=== PATIENT | female | born 1935 | race Caucasian/White ===

== ENCOUNTER 2018-01-03 23:40 | Observation (INO) ==
[2018-01-03] MEDS ORDERED: Ipratropium/Albuterol Neb 3 ML IH ONE (23:44)
[2018-01-03] MEDS ORDERED: cefTRIAXone 2,000 MG in Water for inj. (sterile) 20 ML 10 ML IVP ONE (23:44)
[2018-01-03] MEDS ORDERED: Azithromycin 500 MG in D5% in Water 250 ML IVPB ONE (23:44)
[2018-01-03] MEDS ORDERED: methylPREDNISolone 125 MG/2 ML VIAL IVP ONE (23:44)
--- NOTE | 2018-01-03 23:46 | Emergency Department Note ---
Disposition Clinical Impression: Acute exacerbation of chronic obstructive airways disease Disposition: Admitted As Inpatient Condition: Fair SOB HPI - General Chief Complaint: ED Shortness of Breath/Dyspnea Stated Complaint: santiago Time Seen by Provider: 01/03/18 23:43 Source: patient, family Mode of arrival: private vehicle Limitations: physical limitation, age Nursing Notes Reviewed: Yes Vital Signs Reviewed: Yes - History of Present Illness Patient relates she has had some increased shortness of breath for about a week. She is trying to hold off for another 4 days to see her primary care provider. She relates in last 2-3 days she has had progressive dyspnea such that she is more dyspneic even at rest. She has had dyspnea on exertion and a cough productive of thick phlegm. States she has been taking fluids but feels dry. She had a temperature yesterday that she states was about 101 degrees. She reports a little nausea but no vomiting or diaphoresis. She denies chest pain but instead describes heavy breathing. She denies any lower extremity swelling, immobilization or injury. She has any ill exposures. She states she has Symbicort inhaler as well as nebulized treatments at home. She states her last nebulizer treatment was a day ago. She does report some generalized weakness and malaise. Pt Subjective Complaint: shortness of breath Onset (ago): week(s) (1) Context: recent illness Severity: moderate, severe Consistency/Duration: gradually worsening Improves with: oxygen, bronchodilators Worsens with: exertion, coughing Known history of: COPD Associated symptoms: Reports: fever, cough, wheezing, sputum production, nausea/ vomiting (Nausea only). Denies: chest pain, pain with inspiration, orthopnea, lower extremity pain, polyuria, polydipsia, parasthesias, palpitations, hemoptysis, diaphoresis, syncope, abdominal pain, rash, sense of impending doom Treatment prior to arrival: oxygen Cough present: Yes Cough Description: Voluntary, Productive, Hacking Cough Frequency: Intermittent Sputum production: Yes Sputum Amount: Moderate Sputum Color: Yellow - Related Data Home oxygen amount: 3 liters Home Medications Medication Instructions Recorded Confirmed Ascorbate Calcium [Vitamin C] 500 mg PO DAILY 11/29/15 05/20/17 Aspirin [Adult Low Dose Aspirin EC] 81 mg PO DAILY 11/29/15 01/03/18 Budesonide/Formoterol 160/4.5 2 puff IH BID 11/29/15 05/20/17 [Symbicort 160/4.5] Ferrous Sulfate 325 mg PO DAILY 11/29/15 05/20/17 Folic Acid 1 mg PO DAILY #0 11/29/15 05/20/17 GlipiZIDE [Glipizide Xl] 5 mg PO DAILY 11/29/15 05/20/17 Lansoprazole [Prevacid] 30 mg PO DAILY 11/29/15 05/20/17 Levothyroxine [Synthroid] 100 mcg PO DAILY 11/29/15 05/20/17 Meclizine [Antivert] 12.5 mg PO QID PRN 11/29/15 05/20/17 Metformin HCl [Fortamet] 500 mg PO BIDWM 11/29/15 05/20/17 Metoclopramide HCl 5 mg PO QID PRN 11/29/15 05/20/17 Oxycodone HCl/Acetaminophen 1 tab PO Q6H PRN 11/29/15 05/20/17 [Percocet 10-325 mg Tablet] Sertraline HCl [Zoloft] 100 mg PO DAILY 11/29/15 05/20/17 Gabapentin [Neurontin] 300 mg PO TID 07/11/16 05/20/17 Lisinopril [Zestril] 20 mg PO DAILY 07/11/16 05/20/17 Oxygen 4 l .ROUTE AD 01/30/17 05/20/17 Magnesium Hydroxide [Milk of 400 mg PO DAILY PRN 05/20/17 05/20/17 Magnesia] Sucralfate [Carafate] 1 gm PO BID 05/20/17 05/20/17 Nitroglycerin [Nitrostat] 0.4 mg SL AD PRN 05/22/17 05/22/17 Diltiazem HCl [Diltiazem 24Hr Cd] 360 mg PO 01/03/18 Isosorbide MONOnitrate (24 HR) 60 mg PO DAILY 01/03/18 01/03/18 [Imdur] Previous Rx's Medication Instructions Recorded Furosemide [Lasix] 40 mg PO BID #0 02/04/17 Clopidogrel [Plavix] 75 mg PO DAILY #30 tab 05/22/17 Metoprolol XL (24 HR) Succ [Toprol 25 mg PO DAILY #30 05/22/17 Xl] Allergies Allergy/AdvReac Type Severity Reaction Status Date / Time Sulfa (Sulfonamide Allergy Severe Swelling Verified 12/17/16 14:43 Antibiotics) of Lip/Tongue/Throat All systems ED: reviewed and negative except as stated. Past Medical History - Past Medical History Attestation: Yes The following information was validated with the patient. Source: patient, old records reviewed, obtained from family, nursing notes reviewed Medical history: Reports: atrial fibrillation, cancer, CHF, COPD, coronary artery disease, CVA, diabetes, hyperlipidemia, hypertension, myocardial infarction. Denies: DVT, pulmonary embolus Surgical history: Reports: carotid endarterectomy, herniorrhaphy, hysterectomy Psychiatric history: Reports: no psych history - Social History Smoking Status: Never smoker Smokeless Tobacco Status: No Alcohol use: Reports: none Drug use: Reports: none Physical Exam - General Limitations: no limitations General appearance: alert, in distress (Moderately dyspneic) - Head Head exam: atraumatic, normocephalic, normal inspection - Eye Eye exam: Present: normal appearance, PERRL, EOMI. Absent: scleral icterus, conjunctival injection - ENT ENT exam: normal exam, normal oropharynx, mucous membranes dry - Neck Neck exam: Present: normal inspection, full ROM, trachea midline. Absent: meningismus, lymphadenopathy - Chest Chest inspection: Present: normal inspection, symmetric chest wall rise - Respiratory Respiratory exam: Present: respiratory distress, wheezes, prolonged expiratory phase. Absent: stridor, accessory muscle use - Cardiovascular Cardiovascular exam: Present: regular rate, normal rhythm, normal heart sounds - Abdominal Exam Abdominal exam: Present: soft, Non-Tender, normal bowel sounds. Absent: tenderness, distention, guarding, rebound, rigidity - Extremities Exam Extremities exam: Present: normal inspection, full ROM, normal capillary refill. Absent: tenderness, pedal edema, calf tenderness - Expanded Lower Extremity Exam Neurovascular/Tendon exam: Present: normal capillary refill. Absent: motor deficit, sensory deficit, tendon deficit Gait: not tested/not observed - Back Exam Back exam: Present: normal inspection, full ROM. Absent: tenderness, CVA tenderness (R), CVA tenderness (L) - Neurological Exam Neurological exam: Present: alert, oriented X3 - Psychiatric Psychiatric exam: Present: normal affect, normal mood - Skin Skin exam: Present: warm, dry, intact, normal color. Absent: diaphoresis, pallor Course Vital Signs Temperature 101.9 F H 01/03/18 23:41 Pulse Rate 91 01/03/18 23:41 Respiratory Rate 24 01/03/18 23:41 Blood Pressure 156/66 01/03/18 23:41 O2 Sat by Pulse Oximetry 87 01/03/18 23:41 Temperature 98.9 F 01/04/18 02:17 Pulse Rate 78 01/04/18 02:17 Respiratory Rate 22 01/04/18 02:17 Blood Pressure 78/47 01/04/18 02:17 O2 Sat by Pulse Oximetry 97 01/04/18 02:17 Oxygen Delivery Oxygen Delivery Nasal Cannula Shortness of Breath/Dyspnea - Differential Diagnosis Likely: acute exacerbation of chronic obstructive airways disease, pneumonia - Medical Records Medical records reviewed: Yes I reviewed the patient's medical records. - Lab Data Lab results reviewed: Yes I reviewed the patient's lab results. Result diagrams: 01/04/18 00:00 01/04/18 00:00 Lab Results 01/04/18 01/04/18 01/04/18 Range/Units 00:00 00:00 00:00 WBC 4.9 (4.3-11.1) K/mcL RBC 4.55 (3.82-4.97) M/mcL Hgb 14.5 (11.5-15.4) g/dL Hct 44.9 (35.3-44.9) % MCV 98.7 (83.0-100.0) fL MCH 31.9 (28.0-33.3) pg MCHC 32.3 (31.6-35.5) g/dL RDW 13.1 (11.5-14.5) % Plt Count 146 (140-400) K/mcL MPV 11.5 (9.4-12.4) fL Immature Gran % 0.2 (0-4) % Seg Neutrophils % 73.2 % Lymphocytes % 18.3 % Monocytes % 6.3 % Eosinophils % 1.8 % Basophils % 0.2 % Neutrophils # 3.6 (1.6-8.9) K/mcL Lymphocytes # 0.9 (0.6-4.6) K/mcL Monocytes # 0.3 (0.0-1.3) K/mcL Eosinophils # 0.1 (0.0-0.6) K/mcL Basophils # 0.0 (0.0-0.2) K/mcL PT 11.6 (9.4-12.1) Seconds INR 1.1 APTT 29.2 (26.0-36.0) Seconds Sodium 135 L (136-145) mEq/L Potassium 3.4 L (3.5-5.1) mEq/L Chloride 93 L (98-107) mEq/L Carbon Dioxide 35 H (23-29) mEq/L BUN 22 (8-23) mg/dL Creatinine 1.15 (0.60-1.20) mg/dL Est GFR ( Amer) 55 L (> 60) Est GFR (Non-Af Amer) 45 L (> 60) BUN/Creatinine Ratio 19 (6-26) Glucose 131 H (70-105) mg/dL Calculated Osmolality 285 (280-300) Lactic Acid (0.5-2.2) mmol/L Calcium 8.7 (8.6-10.3) mg/dL Troponin I 0.03 (< 0.04) ng/mL B-Natriuretic Peptide (Less than 100) pg/mL 01/04/18 01/04/18 Range/Units 00:00 00:08 WBC (4.3-11.1) K/mcL RBC (3.82-4.97) M/mcL Hgb (11.5-15.4) g/dL Hct (35.3-44.9) % MCV (83.0-100.0) fL MCH (28.0-33.3) pg MCHC (31.6-35.5) g/dL RDW (11.5-14.5) % Plt Count (140-400) K/mcL MPV (9.4-12.4) fL Immature Gran % (0-4) % Seg Neutrophils % % Lymphocytes % % Monocytes % % Eosinophils % % Basophils % % Neutrophils # (1.6-8.9) K/mcL Lymphocytes # (0.6-4.6) K/mcL Monocytes # (0.0-1.3) K/mcL Eosinophils # (0.0-0.6) K/mcL Basophils # (0.0-0.2) K/mcL PT (9.4-12.1) Seconds INR APTT (26.0-36.0) Seconds Sodium (136-145) mEq/L Potassium (3.5-5.1) mEq/L Chloride (98-107) mEq/L Carbon Dioxide (23-29) mEq/L BUN (8-23) mg/dL Creatinine (0.60-1.20) mg/dL Est GFR ( Amer) (> 60) Est GFR (Non-Af Amer) (> 60) BUN/Creatinine Ratio (6-26) Glucose (70-105) mg/dL Calculated Osmolality (280-300) Lactic Acid 1.8 (0.5-2.2) mmol/L Calcium (8.6-10.3) mg/dL Troponin I (< 0.04) ng/mL B-Natriuretic Peptide 156 H (Less than 100) pg/mL - Radiology Data Radiology results reviewed: Yes I reviewed the patient's radiology results. Single view chest x-ray is performed. This does not demonstrate evidence for infiltrate, effusion, pneumothorax, foreign body or heart failure. Patient is hyperexpanded consistent with COPD/emphysema. The cardiac silhouette is normal. I do not see abnormality to the osseous structures of the chest. This is on my interpretation. Impressions Chest X-Ray 01/04/18 00:03 IMPRESSION: No acute cardiopulmonary disease. D/ / Will Galvan MD / Will Galvan MD Interpreting Provider: Will Galvan MD - EKG Data EKG attestation: Yes I reviewed and interpreted this EKG. EKG shows normal: Reports: sinus rhythm, axis, intervals, QRS complexes, ST-T waves Rate: Reports: normal (79) Rhythm: Reports: PAC's Interpretation: Reports: no acute changes, normal EKG
[2018-01-04 00:15] LABS: Basophils % 0.2 %; Eosinophils # 0.1 K/mcL (0.0-0.6); Eosinophils % 1.8 %; Hematocrit 44.9 % (35.3-44.9); Hemoglobin 14.5 g/dL (11.5-15.4); Immature Granulocytes % 0.2 % (0-4); Lymphocytes # 0.9 K/mcL (0.6-4.6); Lymphocytes % 18.3 %; Mean Corpuscular HGB Conc 32.3 g/dL (31.6-35.5); Mean Corpuscular Hemoglobin 31.9 pg (28.0-33.3); Mean Corpuscular Volume 98.7 fL (83.0-100.0); Mean Platelet Volume 11.5 fL (9.4-12.4); Monocytes # 0.3 K/mcL (0.0-1.3); Monocytes % 6.3 %; Neutrophils # 3.6 K/mcL (1.6-8.9); Platelet Count 146 K/mcL (140-400); Red Blood Count 4.55 M/mcL (3.82-4.97); Red Cell Distribution Width 13.1 % (11.5-14.5); Segmented Neutrophils % 73.2 %
[2018-01-04 00:24] LABS: INR 1.1; Prothrombin Time 11.6 Seconds (9.4-12.1)
[2018-01-04 00:27] LABS: Activated Partial Thrombo Time 29.2 Seconds (26.0-36.0)
[2018-01-04 00:36] LABS: Calcium 8.7 mg/dL (8.6-10.3); Potassium 3.4 mEq/L (3.5-5.1); Troponin I 0.03 ng/mL (< 0.04)
[2018-01-04] MEDS ORDERED: Azithromycin 500 MG in D5% in Water 250 ML IVPB SCH ×2 (01:00→13:00)
[2018-01-04] MEDS ORDERED: Naloxone 0.4 MG/ML INJ IVP PRN (02:13)
[2018-01-04] MEDS ORDERED: Dextrose Gel 15 GM PO PRN ×2 (02:13)
[2018-01-04] MEDS ORDERED: *HR* Dextrose 50 % in Water (Syg) 50 ML SYRINGE IVP PRN (02:13)
[2018-01-04] MEDS ORDERED: D5% in Water 1,000 ML IVC PRN (02:13)
[2018-01-04] MEDS ORDERED: 0.9 % Sodium Chloride 1,000 ML IVC SCH (02:13)
[2018-01-04] MEDS: Ipratropium/Albuterol Neb 3 ML IH SCH ×2 (04:22→09:21)
[2018-01-04] MEDS: Aspirin Enteric Coated 81 MG Tablet PO SCH (08:44)
[2018-01-04] MEDS: predniSONE 20 MG TABLET PO SCH ×2 (08:44→17:21)
[2018-01-04] MEDS: Insulin LISPRO 300 UNITS/3 ML VIAL SQ SCH ×3 (08:44→17:22)
[2018-01-04] MEDS: Isosorbide MONOnitrate (24 HR) 60 MG TAB.ER.24H PO SCH (08:44)
--- NOTE | 2018-01-04 10:44 | Internal Med History&Physical ---
Date of Encounter: 01/04/18 Time of Encounter: 10:10 Assessment and Plan (1) COPD (chronic obstructive pulmonary disease) Current visit: No Status: Chronic She has been started on Rocephin and Zithromax. Will add lactobacillus. We will order chest CT to follow-up on June 2016 study which recommended 3-6 month follow-up. Qualifiers: COPD type: unspecified COPD Qualified Code(s): J44.9 - Chronic obstructive pulmonary disease, unspecified (2) A-fib Current visit: No Status: Chronic Continue aspirin and Plavix rather than anticoagulation. Qualifiers: Atrial fibrillation type: paroxysmal Qualified Code(s): I48.0 - Paroxysmal atrial fibrillation (3) Weight loss Current visit: No Status: Acute We will order chest abdominal CT and check TSH. (4) Hyperuricemia Current visit: No Status: Acute We will check uric acid level and a.m. (5) Hypothyroidism Current visit: No Status: Chronic Check TSH in a.m. Qualifiers: Hypothyroidism type: unspecified Qualified Code(s): E03.9 - Hypothyroidism , unspecified Internal Medicine - H&P: HPI Chief complaint: Cough and dyspnea Admitted From: Emergency Dept Plans for Post Hospital Care: Home History of present illness: Ms. Conteh is a 82 year old female who came to emergency room complaining of cough and dyspnea onset 1 week earlier. She reports the cough was occasionally productive of yellow phlegm that was thick. She denies hemoptysis. She reports having fever 101 the evening of January 02. She was evaluated in emergency room and felt to have exacerbation of COPD and was admitted to [facility] floor for ongoing care needs. Her respiratory history is significant for having smoked from age [age] seldom exceeding one half pack per day. She has diagnoses of asthma and COPD. She has home oxygen which she wears 05/05. Past Med Surg Social Fam HX - Past Medical History Medical history: atrial fibrillation, cancer, CHF, COPD, coronary artery disease , CVA, diabetes, hyperlipidemia, hypertension, myocardial infarction Psychiatric history: no psych history - Past Surgical History Surgical History: carotid endarterectomy, herniorrhaphy, hysterectomy - Social History Smoking Status: Never smoker Smokeless Tobacco Status: No Alcohol use: none Drug use: none - Family History Mother Family Member Ethnicity: Non- Living Status: Hx Family Cardiac Disorders: Yes ( of RI) Hx Family Respiratory Disorders: No Hx Family Cancer: No Hx Family GI Disorders: No Hx Family Endocrine Disorder: No Hx Family Neuromuscular Disorders: No Hx Family Neurologic Disorders: No Hx Family HEENT Disorders: No Hx Family Autoimmune Disorders: No Internal Medicine - H&P: Meds Ascorbate Calcium [Vitamin C] 500 mg PO DAILY 11/29/15 [History] Aspirin [Adult Low Dose Aspirin EC] 81 mg PO DAILY 11/29/15 [History] Budesonide/Formoterol 160/4.5 [Symbicort 160/4.5] 2 puff IH BID 11/29/15 [ History] Ferrous Sulfate 325 mg PO DAILY 11/29/15 [History] Folic Acid 1 mg PO DAILY #0 11/29/15 [History] GlipiZIDE [Glipizide Xl] 5 mg PO DAILY 11/29/15 [History] Lansoprazole [Prevacid] 30 mg PO DAILY 11/29/15 [History] Levothyroxine [Synthroid] 100 mcg PO DAILY 11/29/15 [History] Meclizine [Antivert] 12.5 mg PO QID PRN 11/29/15 [History] Metformin HCl [Fortamet] 500 mg PO BIDWM 11/29/15 [History] Metoclopramide HCl 5 mg PO QID PRN 11/29/15 [History] Oxycodone HCl/Acetaminophen [Percocet 10-325 mg Tablet] 1 tab PO Q6H PRN [History] Sertraline HCl [Zoloft] 100 mg PO DAILY 11/29/15 [History] Gabapentin [Neurontin] 300 mg PO TID 07/11/16 [History] Lisinopril [Zestril] 20 mg PO DAILY 07/11/16 [History] Oxygen 4 l .ROUTE AD 01/30/17 [History] Furosemide [Lasix] 40 mg PO BID #0 02/04/17 [Rx] Magnesium Hydroxide [Milk of Magnesia] 400 mg PO DAILY PRN 05/20/17 [History] Sucralfate [Carafate] 1 gm PO BID 05/20/17 [History] Clopidogrel [Plavix] 75 mg PO DAILY #30 tab 05/22/17 [Rx] Metoprolol XL (24 HR) Succ [Toprol Xl] 25 mg PO DAILY #30 05/22/17 [Rx] Nitroglycerin [Nitrostat] 0.4 mg SL AD PRN 05/22/17 [History] Diltiazem HCl [Diltiazem 24Hr Cd] 360 mg PO 01/03/18 [History] Isosorbide MONOnitrate (24 HR) [Imdur] 60 mg PO DAILY 01/03/18 [History] 3 Allergy/AdvReac Type Severity Reaction Status Date / Time Sulfa (Sulfonamide Allergy Severe Swelling Verified 12/17/16 14:43 Antibiotics) of Lip/Tongue/Throat All Systems PM: A 10-system review of systems was performed and is negative for pertinent findings except as documented above in the HPI. Review of systems: Gen.: Her weight has decreased from 61.915 kg on 07/11/2016 to 49.4 kg today. She reported weighing approximately 80 kg spring 2015. Cardiovascular: She has known ASHD with heart cath 04/21/2013 at [facility] showing unremarkable LMCA, 30% stenosis in the proximal LAD, 30% stenosis in the proximal circumflex with a patent stent from previous procedure in the mid circumflex. There was 30% stenosis in the mid RCA. She had a nuclear stress test November 2015 which showed mild intensity perfusion defect in the apex and which ischemia cannot be ruled out. The EKG was nondiagnostic for ischemia due to baseline abnormal ST normalities. Her LVEF was 70%. An echocardiogram done November 2015 showed LVEF of 65% with normal LV size and systolic function. There was left atrial enlargement but no significant valvular abnormalities were seen. There was reported to be moderate diastolic dysfunction. She reports chronic atrial fibrillation and has been on Coumadin the past but was changed to aspirin and Plavix after having falls with significant facial ecchymoses. She claims she had an RI in the remote past. She claims a diagnosis of CHF but had normal LVEF as reported above. She has history of hypertension. She denies DVT or pulmonary emboli. 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 She has had femorofemoral bypass. Respiratory: As per history of present illness GI: She has GERD and has a ventral abdominal hernia. She denies disorders of her liver gallbladder or exocrine pancreas. : She denies disorders of her kidneys. 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 Neurologic: She claims she had a stroke in the past with no permanent neurologic deficit. She had bilateral carotid artery stenosis with bilateral endarterectomies performed several years ago. She denies seizures. Endocrine: She states she was diagnosed with DM 2 approximately 2010. She has hyperlipidemia and hypothyroidism Hematology/oncology: She had cervical cancer as mentioned. 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 - Constitutional Vitals: Temp Pulse Resp BP Pulse Ox 98.4 F 46 16 81/41 97 01/04/18 06:48 01/04/18 06:48 01/04/18 09:25 01/04/18 06:48 01/04/18 09:25 Exam: Gen.: She is a well-developed lean female lying in bed who appears in no acute distress HEENT: Head is atraumatic and normocephalic. Eyes: EOMI. There is no scleral icterus. Mouth: Mucosa is moist. Neck: Supple and nontender. There is no thyromegaly or adenopathy noted. Heart: Irregularly irregular without murmurs or gallops Lungs: She has diminished breath sounds diffusely. No wheezes or crackles are heard. Abdomen: She has a large abdominal hernia. It is nontender to palpation. Extremities: There is no cyanosis edema or clubbing noted. Dorsalis pedis and posttibial pulses are trace to 1+ palpable bilaterally. Neurologic: Mental status: She is talkative and a good historian. Cranial nerves: Smile is symmetric. Forehead wrinkles bilaterally. Tongue protrudes midline. EOMI. Motor: There is no pronator drift. Cerebellar: Finger to nose is intact bilaterally. Skin: Warm and dry Internal Med - H&P Results - Labs CBC & Chem 7: 01/04/18 00:00 01/04/18 00:00 - VTE Documentation of Mechanical Device: Graduated compression elastic hosiery
[2018-01-04] MEDS: 0.45 % Sodium Chloride w/KCl 20 MEQ/1,000 ML MLS IVC SCH (12:11)
[2018-01-04] MEDS: Lactobacillus 1 EACH CAP.SPRINK PO SCH (20:33)
[2018-01-04] MEDS ORDERED: *HR* OxyCODONE/APAP 10/325 TABLET PO PRN (20:41)
[2018-01-04] MEDS: MOM Conc 10 ML UD.LIQ PO PRN (20:52)
[2018-01-05] MEDS: cefTRIAXone 2,000 MG in Water for inj. (sterile) 20 ML 20 ML IVPB SCH (00:31)
[2018-01-05] MEDS: Azithromycin 500 MG in D5% in Water 250 ML IVPB SCH (00:34)
[2018-01-05] MEDS: 0.45 % Sodium Chloride w/KCl 20 MEQ/1,000 ML MLS IVC SCH (00:40)
[2018-01-05 05:28] LABS: Basophils % 0.2 %; Hematocrit 40.4 % (35.3-44.9); Hemoglobin 13.1 g/dL (11.5-15.4); Immature Granulocytes % 0.2 % (0-4); Lymphocytes # 0.5 K/mcL (0.6-4.6); Lymphocytes % 7.3 %; Mean Corpuscular HGB Conc 32.4 g/dL (31.6-35.5); Mean Corpuscular Hemoglobin 31.6 pg (28.0-33.3); Mean Corpuscular Volume 97.3 fL (83.0-100.0); Mean Platelet Volume 11.8 fL (9.4-12.4); Monocytes # 0.4 K/mcL (0.0-1.3); Monocytes % 6.2 %; Neutrophils # 5.7 K/mcL (1.6-8.9); Platelet Count 123 K/mcL (140-400); Red Blood Count 4.15 M/mcL (3.82-4.97); Red Cell Distribution Width 12.8 % (11.5-14.5); Segmented Neutrophils % 86.1 %
[2018-01-05] MEDS: *HR* Enoxaparin 30 MG/0.3 ML SYRINGE SQ SCH (05:59)
[2018-01-05] MEDS: Albuterol 2.5 MG/3 ML NEBULIZER IH PRN ×2 (06:16→14:39)
[2018-01-05 06:21] LABS: Thyroid Stimulating Hormone 3.516 mcIU/mL (0.340-5.600)
[2018-01-05 06:22] LABS: Alanine Aminotransferase 12 Units/L (7-52); Albumin 3.4 g/dL (3.5-5.7); Albumin/Globulin Ratio 1.4 (1.1-2.2); Alkaline Phosphatase 69 Units/L (34-104); Aspartate Amino Transferase 23 Units/L (13-39); BUN/Creatinine Ratio 34 (6-26); Bilirubin,Total 0.2 mg/dL (0.3-1.0); Blood Urea Nitrogen 35 mg/dL (8-23); Calcium 8.6 mg/dL (8.6-10.3); Carbon Dioxide 35 mEq/L (23-29); Chloride 97 mEq/L (98-107); Globulin 2.5 g/dL (2.4-3.5); Glucose 145 mg/dL (70-105); Magnesium 2.5 mg/dL (1.6-2.6); Osmolality,Calculated 295 (280-300); Potassium 4.4 mEq/L (3.5-5.1); Sodium 137 mEq/L (136-145); Total Protein 5.9 g/dL (6.4-8.9); Uric Acid 7.5 mg/dL (2.3-7.6); eGFR For African Americans > 60 (> 60); eGFR For Non-African Americans 52 (> 60)
[2018-01-05] MEDS: Isosorbide MONOnitrate (24 HR) 60 MG TAB.ER.24H PO SCH (08:47)
[2018-01-05] MEDS: predniSONE 20 MG TABLET PO SCH ×2 (08:47→18:26)
[2018-01-05] MEDS: Aspirin Enteric Coated 81 MG Tablet PO SCH (08:47)
[2018-01-05] MEDS: Insulin LISPRO 300 UNITS/3 ML VIAL SQ SCH ×3 (08:47→18:28)
[2018-01-05] MEDS: Lactobacillus 1 EACH CAP.SPRINK PO SCH ×2 (08:47→20:43)
--- NOTE | 2018-01-05 14:15 | Internal Med Progress Note ---
Date of Encounter: 01/05/18 Time of Encounter: 14:05 - Assessment and plan (1) COPD (chronic obstructive pulmonary disease) Current Visit: No Status: Chronic Assessment and plan: January 05. Continue antibiotics and lactobacillus. Chest/abdomen CT was generally unremarkable. Qualifiers: COPD type: unspecified COPD Qualified Code(s): J44.9 - Chronic obstructive pulmonary disease, unspecified (2) A-fib Current Visit: No Status: Chronic Assessment and plan: January 05. Rate control. Continue aspirin and Plavix. Qualifiers: Atrial fibrillation type: paroxysmal Qualified Code(s): I48.0 - Paroxysmal atrial fibrillation (3) Weight loss Current Visit: No Status: Acute Assessment and plan: January 05. TSH was normal. Abdominal and chest CT were generally unremarkable. (4) Hyperuricemia Current Visit: No Status: Acute Assessment and plan: January 05. Uric acid level within normal range at 7.5. (5) Hypothyroidism Current Visit: No Status: Chronic Qualifiers: Hypothyroidism type: unspecified Qualified Code(s): E03.9 - Hypothyroidism , unspecified - Subjective Interval history: January 05. She has no new complaints and feels better. - Constitutional Vitals: Temp Pulse Resp BP Pulse Ox 98.3 F 69 18 114/40 96 01/05/18 12:05 01/05/18 12:05 01/05/18 12:05 01/05/18 12:05 01/05/18 12:05 Exam: She is resting comfortably in bed. Her affect is bright and cheerful. I reviewed her medications and lab results. Internal Medicine: Result - Labs CBC & Chem 7: 01/05/18 05:05 01/05/18 05:05 Labs: Short CBC 01/05/18 Range/Units 05:05 WBC 6.6 (4.3-11.1) K/mcL Hgb 13.1 (11.5-15.4) g/dL Hct 40.4 (35.3-44.9) % Plt Count 123 L (140-400) K/mcL Neutrophils # 5.7 (1.6-8.9) K/mcL BMP 01/05/18 05:05 Sodium 137 Potassium 4.4 Chloride 97 L Carbon Dioxide 35 H BUN 35 H Creatinine 1.02 Glucose 145 H Calcium 8.6 Liver Function 01/05/18 Range/Units 05:05 Total Bilirubin 0.2 L (0.3-1.0) mg/dL AST 23 (13-39) Units/L ALT 12 (7-52) Units/L Alkaline Phosphatase 69 (34-104) Units/L Albumin 3.4 L (3.5-5.7) g/dL - ABG Interpretation ABG results: PT/INR, D-dimer PT 11.6 Seconds (9.4-12.1) 01/04/18 00:00 - VTE Documentation of Mechanical Device: Graduated compression elastic hosiery Consult Discharge Plan - Plan Referrals: Sariah Hill, [employer] [Primary Care Provider] - 1 week
[2018-01-05] MEDS: MOM Conc 10 ML UD.LIQ PO PRN (20:43)
[2018-01-06] MEDS: cefTRIAXone 2,000 MG in Water for inj. (sterile) 20 ML 20 ML IVPB SCH (00:55)
[2018-01-06] MEDS: Azithromycin 500 MG in D5% in Water 250 ML IVPB SCH (00:57)
[2018-01-06] MEDS: Albuterol 2.5 MG/3 ML NEBULIZER IH PRN (02:13)
[2018-01-06] MEDS: *HR* Enoxaparin 30 MG/0.3 ML SYRINGE SQ SCH (05:39)
--- NOTE | 2018-01-06 07:22 | Electrocardiograph Report ---
[address] [address] Test Date: 2018-01-03 Pat Name: Aissatou Conteh Department: [id number] Room: [facility] Gender: F Seat [employer]vers Trimmer: [id number] : 1935 Requested By: Celestino Mena Order Number: [id number] Reading MD: Ken Newton MD Measurements Intervals [place] Rate: 79 P: 58 SD: 105 QRS: 57 QRSD: 89 T: 51 QT: 341 QTc: 375 Interpretive Statements SINUS RHYTHM WITH SHORT SD INTERVAL WITH OCCASIONAL SUPRAVENTRICULAR PREMATURE COMPLEXES BASELINE ARTIFACT Electronically Signed On 01-06-2018 7:21:18 EDT by Ken Newton MD
[2018-01-06] MEDS: Insulin LISPRO 300 UNITS/3 ML VIAL SQ SCH (07:54)
[2018-01-06] MEDS: Lactobacillus 1 EACH CAP.SPRINK PO SCH (07:54)
[2018-01-06] MEDS: Aspirin Enteric Coated 81 MG Tablet PO SCH (07:55)
[2018-01-06] MEDS: predniSONE 20 MG TABLET PO SCH (07:55)
[2018-01-06] MEDS: Isosorbide MONOnitrate (24 HR) 60 MG TAB.ER.24H PO SCH (07:55)
--- NOTE | 2018-01-06 10:53 | Discharge Summary ---
Date of Encounter: 01/06/18 Time of Encounter: 10:45 - Discharge Diagnosis (1) COPD (chronic obstructive pulmonary disease) Priority: Primary Status: Chronic Qualifiers: COPD type: unspecified COPD Qualified Code(s): J44.9 - Chronic obstructive pulmonary disease, unspecified (2) A-fib Priority: Secondary Status: Chronic Qualifiers: Atrial fibrillation type: paroxysmal Qualified Code(s): I48.0 - Paroxysmal atrial fibrillation (3) Weight loss Priority: Secondary Status: Acute (4) Hyperuricemia Priority: Secondary Status: Acute (5) Hypothyroidism Priority: Secondary Status: Chronic Qualifiers: Hypothyroidism type: unspecified Qualified Code(s): E03.9 - Hypothyroidism , unspecified Hospital course: Ms. Conteh is a 82 year old female who came to emergency room complaining of cough and dyspnea onset 1 week earlier. She reports the cough was occasionally productive of yellow phlegm that was thick. She denies hemoptysis. She reports having fever 101 the evening of January 02. She was evaluated in emergency room and felt to have exacerbation of COPD and was admitted to [facility] floor for ongoing care needs. Initial orders were written by the emergency room physician. I saw her on January 04 and performed the history and physical. She was started on Rocephin and Zithromax with lactobacillus for COPD. Chest CT was done to follow-up on June [address] was also done to further evaluate a 60 pound weight loss. There were no acute findings suspicious for malignancy. No significant infiltrate was seen. She felt clinically improved on January 06 and stable for discharge home. She will continue with antibiotic and probiotic for 3 additional days at discharge. She will continue oxygen use at home. Supplement potassium was given and hypokalemia resolved by the day after admission. She will continue with supplemental potassium at discharge. Creatinine improved to 1.02 with estimated GFR rising to 52. TSH was normal at 3.516. Uric acid returned at the upper limit of normal at 7.5. She will be discharged home today and follow with her PCP Sariah Hill CNP within 1 week. - Time Spent with Patient Total time spent providing and/or coordinating discharge services: - Discharge Medications Prescriptions: Cefuroxime PO [Ceftin] 500 mg PO Q12HR #6 tablet Azithromycin [Zithromax] 250 mg PO DAILY #3 tablet Lactobacillus [Culturelle] 1 each PO BID #6 cap.sprink Potassium Chloride 10 meq PO DAILY #30 tab.er.prt Home Medications: Ascorbate Calcium [Vitamin C] 500 mg PO DAILY 11/29/15 [History] Aspirin [Adult Low Dose Aspirin EC] 81 mg PO DAILY 11/29/15 [History] Budesonide/Formoterol 160/4.5 [Symbicort 160/4.5] 2 puff IH BID 11/29/15 [ History] Ferrous Sulfate 325 mg PO DAILY 11/29/15 [History] Folic Acid 1 mg PO DAILY #0 11/29/15 [History] GlipiZIDE [Glipizide Xl] 5 mg PO DAILY 11/29/15 [History] Lansoprazole [Prevacid] 30 mg PO DAILY 11/29/15 [History] Levothyroxine [Synthroid] 100 mcg PO DAILY 11/29/15 [History] Meclizine [Antivert] 12.5 mg PO QID PRN 11/29/15 [History] Metformin HCl [Fortamet] 500 mg PO BIDWM 11/29/15 [History] Metoclopramide HCl 5 mg PO QID PRN 11/29/15 [History] Oxycodone HCl/Acetaminophen [Percocet 10-325 mg Tablet] 1 tab PO Q6H PRN [History] Sertraline HCl [Zoloft] 100 mg PO DAILY 11/29/15 [History] Gabapentin [Neurontin] 300 mg PO TID 07/11/16 [History] Lisinopril [Zestril] 20 mg PO DAILY 07/11/16 [History] Oxygen 4 l .ROUTE AD 01/30/17 [History] Furosemide [Lasix] 40 mg PO BID #0 02/04/17 [Rx] Magnesium Hydroxide [Milk of Magnesia] 400 mg PO DAILY PRN 05/20/17 [History] Sucralfate [Carafate] 1 gm PO BID 05/20/17 [History] Clopidogrel [Plavix] 75 mg PO DAILY #30 tab 05/22/17 [Rx] Metoprolol XL (24 HR) Succ [Toprol Xl] 25 mg PO DAILY #30 05/22/17 [Rx] Nitroglycerin [Nitrostat] 0.4 mg SL AD PRN 05/22/17 [History] Diltiazem HCl [Diltiazem 24Hr Cd] 360 mg PO 01/03/18 [History] Isosorbide MONOnitrate (24 HR) [Imdur] 60 mg PO DAILY 01/03/18 [History] Azithromycin [Zithromax] 250 mg PO DAILY #3 tablet 01/06/18 [Rx] Cefuroxime PO [Ceftin] 500 mg PO Q12HR #6 tablet 01/06/18 [Rx] Lactobacillus [Culturelle] 1 each PO BID #6 cap.sprink 01/06/18 [Rx] Potassium Chloride 10 meq PO DAILY #30 tab.er.prt 01/06/18 [Rx] Allergies/Adverse Reactions: 3 Allergy/AdvReac Type Severity Reaction Status Date / Time Sulfa (Sulfonamide Allergy Severe Swelling Verified 12/17/16 14:43 Antibiotics) of Lip/Tongue/Throat Date of admission: 01/04/18 01:07 Primary care physician: Sariah Hill CNP Consults: 01/04/18 02:40 Consult to Nutrition [CONS] Routine Comment: Consulting Provider: NUTRITION Reason for Dietary Consult: PO Supplementation Diet Education - Constitutional Vitals: Temp Pulse Resp BP Pulse Ox 97.4 F L 60 24 92/54 100 01/06/18 07:10 01/06/18 07:10 01/06/18 07:10 01/06/18 07:10 01/06/18 07:10 - Patient Status Disposition: Home, Self-Care Condition: Fair Overall status at discharge: patient is progressing back to baseline - Discharge Instructions Follow Up With: Sariah Hill CNP [Primary Care Provider] - 1 week - Diet and Activity Activity: resume usual activities as tolerated, wear oxygen at all times Diet: advance to your usual diet - VTE Documentation of Mechanical Device: Graduated compression elastic hosiery
[2018-01-06 10:57] VITALS: BP 100/51
[2018-01-06] MEDS ORDERED: predniSONE 10 MG TABLET PO SCH (17:00)
== END 2018-01-06 11:44 | disposition home or self-care (01) ==
LOC: INPPIK 23:40 → EMEROOPIK 23:40 → INPPIK 01-04 02:10
PROVIDERS: ADMIT Internal Medicine; ATTEND Internal Medicine